=== PATIENT | female | born 1990 | race Caucasian/White ===

== ENCOUNTER → 2024-01-10 10:29 | Outpatient (REF) | payer BC, SELFPAY | LOC: PNTC 10:29 | PROVIDERS: ATTENDING PHYSICIAN Obstetrics & Gynecology | DX: O09.819 Supervision of pregnancy resulting from assisted reproductive technology, unspecified trimester (principal); O98.519 Other viral diseases complicating pregnancy, unspecified trimester; O14.90 Unspecified pre-eclampsia, unspecified trimester | CPT/HCPCS: 59025; 76815 ==

== ENCOUNTER 2024-01-14 07:03 | Inpatient (IN) | payer BC, SELFPAY ==
[2024-01-14 07:34] VITALS: BMI 32.5
[2024-01-14 08:21] LABS: % Basophils 0.5 % (0-2); % Immature Granulocytes 0.7 % (0-0.5); % Lymphocytes 17.6 % (20.5-51.1); % Monocytes 5.7 % (1.7-9.3); % Neutrophils 74.5 % (42.2-75.2); Absolute Basophils 0.1 10^3/uL (0-0.2); Absolute Eosinophils 0.1 10^3/uL (0-0.7); Absolute Immature Granulocytes 0.1 10^3/uL (0-0.05); Absolute Lymphocytes 1.9 10^3/uL (1.2-3.4); Absolute Monocytes 0.6 10^3/uL (0.1-0.6); Absolute Neutrophils 8.1 10^3/uL (1.4-6.5); Hematocrit 33.8 % (37.0-47.0); Hemoglobin 11.3 g/dL (12.0-16.0); Mean Corp Hgb Conc. 33.4 g/dL (33.0-37.0); Mean Corpuscular Hgb 27.8 pg (27.0-31.0); Mean Corpuscular Volume 83.3 fL (81.0-99.0); Mean Platelet Volume 8.8 fL (7.4-10.4); Nucleated Red Blood Cells % 0 %; Platelet Count 225 10^3/uL (130-400); Red Blood Cell Count 4.06 10^6/uL (4.20-5.40); Red Cell Dist. Width 13.7 % (11.5-14.5); White Blood Cell Count 10.9 10^3/uL (4.8-10.8)
[2024-01-14 08:31] LABS: ALT (SGPT) 47 U/L (0-35); AST (SGOT) 59 U/L (14-36); Albumin 3.4 g/dl (3.5-5.0); Alkaline Phosphatase 289 U/L (38-126); Blood Urea Nitrogen 8 mg/dl (7-17); Carbon Dioxide 18 mmol/L (22-30); Chloride 106 mmol/L (98-107); Estimated Creatinine Clearance > 125 ml/min; Glucose 103 mg/dl (70-99); Potassium 4.1 mmol/L (3.5-5.1); Sodium 137 mmol/L (135-145); Total Bilirubin 0.2 mg/dl (0.2-1.3); Total Protein 6.2 g/dl (6.3-8.2); Uric Acid 5.5 mg/dl (2.5-6.2); eGFR > 60.00
[2024-01-14 08:34] LABS: Urine Albumin Trace (Neg - Trace); Urine Bilirubin Negative (Negative); Urine Character Slightly Cloudy (Clear); Urine Color Yellow; Urine Glucose Negative (Negative); Urine Ketone Negative (Negative); Urine Leukocyte Negative (Negative); Urine Nitrite Negative (Negative); Urine Occult Blood Negative (Negative); Urine Urobilinogen Negative (Neg - 1+)
[2024-01-14] MEDS: CYTOTEC 50 MICROGRAM VAG (10:00)
[2024-01-14 10:32] LABS: Protein/creatinine Ratio 0.2; Urine Protein 19 mg/dl
[2024-01-14] MEDS: CYTOTEC 50 MICROGRAM PO (14:13)
[2024-01-14] MEDS: CYTOTEC PO (18:25)
[2024-01-14] MEDS: PITOCIN 30 UNITS/NSS 500 ML IV (19:04)
[2024-01-14] MEDS: LR 1000 IV (21:41)
[2024-01-15] MEDS: SUBLIMAZE 100 MCG EPIDURAL (00:51)
[2024-01-15] MEDS: FENTANYL/BUPIVACAINE 100 EPIDURAL (00:57)
[2024-01-15] MEDS: PITOCIN 10 UNITS IM (04:05)
[2024-01-15] MEDS: MORPHINE SULFATE 2 MG IV (04:15)
[2024-01-15] MEDS: SYNTHROID 137 MCG PO (06:00)
[2024-01-15 07:36] LABS: ALT (SGPT) 39 U/L (0-35); AST (SGOT) 52 U/L (14-36)
[2024-01-15] MEDS: MOTRIN 600 MG PO (15:59)
[2024-01-16 05:08] LABS: Hematocrit 28.3 % (37.0-47.0); Hemoglobin 9.4 g/dL (12.0-16.0)
[2024-01-16 05:31] LABS: ALT (SGPT) 42 U/L (0-35); AST (SGOT) 54 U/L (14-36)
[2024-01-16] MEDS: SYNTHROID 137 MCG PO (05:45)
[2024-01-17 11:31] LABS: Syphilis/T. pallidum Ab Reflex Negative (Negative)
== END 2024-01-16 12:18 | disposition home or self-care (01) | DRG 807 ==
LOC: LDRP 07:03
PROVIDERS: ADMITTING PHYSICIAN Obstetrics & Gynecology
PROC: 3E0P7VZ Introduction of Hormone into Female Reproductive, Via Natural or Artificial Opening (ICD-10-PCS; 2024-01-14)
PROC: 10E0XZZ Delivery of Products of Conception, External Approach (ICD-10-PCS; 2024-01-15)
PROC: 10907ZC Drainage of Amniotic Fluid, Therapeutic from Products of Conception, Via Natural or Artificial Opening (ICD-10-PCS; 2024-01-15)
PROC: 0HQ9XZZ Repair Perineum Skin, External Approach (ICD-10-PCS; 2024-01-15)
DX: O75.89 Other specified complications of labor and delivery (principal); Z37.0 Single live birth; R94.5 Abnormal results of liver function studies; O99.284 Endocrine, nutritional and metabolic diseases complicating childbirth; O14.04 Mild to moderate pre-eclampsia, complicating childbirth; E03.9 Hypothyroidism, unspecified; Z3A.37 37 weeks gestation of pregnancy; O70.0 First degree perineal laceration during delivery; O69.81X0 Labor and delivery complicated by cord around neck, without compression, not applicable or unspecified; O99.214 Obesity complicating childbirth; Z79.890 Hormone replacement therapy; Z14.1 Cystic fibrosis carrier; Z82.3 Family history of stroke; Z82.49 Family history of ischemic heart disease and other diseases of the circulatory system; Z86.14 Personal history of Methicillin resistant Staphylococcus aureus infection; Z87.442 Personal history of urinary calculi
CPT/HCPCS: 88307; 80053; 81003; 82570; 84156; 84450; 84460; 84550; 85014; 85018; 85025; 86780; 86850; 86900; 86901; 87070

== ENCOUNTER 2024-03-20 12:00 | Outpatient (RCR) | payer BC, SELFPAY | END 2024-03-20 23:59 | disposition home or self-care (01) | LOC: RPT 12:00 | PROVIDERS: ATTENDING PHYSICIAN Obstetrics & Gynecology; FAMILY PHYSICIAN Family Medicine | DX: N81.2 Incomplete uterovaginal prolapse (principal); M62.89 Other specified disorders of muscle; R10.2 Pelvic and perineal pain; Z73.6 Limitation of activities due to disability | CPT/HCPCS: 97140; 97162; 97530 ==

== ENCOUNTER 2024-05-01 07:46 | Outpatient (RCR) | payer BC, SELFPAY | END 2024-05-01 23:59 | disposition home or self-care (01) | LOC: RPT 07:46 | PROVIDERS: ATTENDING PHYSICIAN Obstetrics & Gynecology; FAMILY PHYSICIAN Family Medicine | DX: N81.2 Incomplete uterovaginal prolapse (principal); M62.89 Other specified disorders of muscle; R10.2 Pelvic and perineal pain; Z73.6 Limitation of activities due to disability | CPT/HCPCS: 97014; 97112; 97530 ==

== ENCOUNTER 2024-06-15 06:49 | Outpatient (RCR) | payer BC, SELFPAY | END 2024-06-15 23:59 | disposition home or self-care (01) | LOC: RPT 06:49 | PROVIDERS: ATTENDING PHYSICIAN Obstetrics & Gynecology; FAMILY PHYSICIAN Family Medicine | DX: N81.2 Incomplete uterovaginal prolapse (principal); M62.89 Other specified disorders of muscle; R10.2 Pelvic and perineal pain; Z73.6 Limitation of activities due to disability | CPT/HCPCS: 97014; 97110; 97112; 97140; 97530 ==